=== PATIENT | male | born 1995 | race African-American/Black ===

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

== ENCOUNTER 2021-11-27 07:56 | Emergency (ER) | payer OTHER ==
[2021-11-27 08:05] VITALS: BP 111/74; PULSE 92; TEMP 97.8; BMI 21.4
[2021-11-27] MEDS ORDERED: KETOROLAC TROMETHAMINE 30 MG/1 ML VIAL IM ONE (08:22)
[2021-11-27] MEDS ORDERED: KETOROLAC TROMETHAMINE 30 MG/1 ML VIAL ONE (08:23)
== END 2021-11-27 08:52 | disposition home or self-care (01) ==
LOC: JER 07:56 → JERFT 07:56
PROC: 0H98XZZ Drainage of Buttock Skin, External Approach (ICD-10-PCS; principal; 2021-11-27)
PROC: 3E023GC Introduction of Other Therapeutic Substance into Muscle, Percutaneous Approach (ICD-10-PCS; 2021-11-27)
DX: L02.31 Cutaneous abscess of buttock (principal)
CPT/HCPCS: 10061; 87070; 87076; 87205; 96372; 99284-25